=== PATIENT | female | born 1965 | race Caucasian/White ===

== ENCOUNTER → 2017-12-05 | Outpatient (CLI) | payer OTHER | LOC: CIMAGING 16:31 | PROVIDERS: ATTEND Family Medicine | DX: M77.32 Calcaneal spur, left foot (principal); M89.371 Hypertrophy of bone, right ankle and foot | CPT/HCPCS: 73620-PO ==

== ENCOUNTER → 2018-02-20 | Outpatient (CLI) | payer OTHER | LOC: BMCIMAGING 16:25 | PROVIDERS: ATTEND Internal Medicine Rheumatology | DX: R76.0 Raised antibody titer (principal); M79.89 Other specified soft tissue disorders; M79.641 Pain in right hand ==

== ENCOUNTER → 2018-06-14 | Outpatient (CLI) | payer OTHER ==
[~2018-06-14] MED LIST: IOPAMIDOL (ISOVUE-300) 100 ML BTL ONE
== END ==
LOC: FIMAGING 14:26
PROVIDERS: ATTEND Hospitalist
DX: K57.32 Diverticulitis of large intestine without perforation or abscess without bleeding (principal); N83.8 Other noninflammatory disorders of ovary, fallopian tube and broad ligament
CPT/HCPCS: Q9967